=== PATIENT | female | born 1935 | race Asian ===

== ENCOUNTER 2018-10-08 11:13 | Emergency (ER) | payer MEDICARE, OTHER ==
[~2018-10-08] VITALS: Ht 157.5 cm; Wt 44.5 kg
[2018-10-08 11:18] VITALS: BP 132/83
== END 2018-10-08 13:05 | disposition home or self-care (01) ==
LOC: ED 11:13
DX: R22.2 Localized swelling, mass and lump, trunk (principal); Z98.890 Other specified postprocedural states; K59.00 Constipation, unspecified; H40.9 Unspecified glaucoma; Z88.5 Allergy status to narcotic agent; Z88.6 Allergy status to analgesic agent; Z88.8 Allergy status to other drugs, medicaments and biological substances

== ENCOUNTER 2019-12-02 10:04 | Inpatient (IN) | payer OTHER, MEDICARE ==
[~2019-12-02] VITALS: Ht 152.4 cm; Wt 42.6 kg
--- NOTE | 2019-12-02 10:31 | NUR ---
PATIENT WITH FAMILY MEMBER AT THIS TIME. FAMILY MEMBER STATES THAT PATIENT FELL DUE TO BEING DIZZY. PATIENT HAS CUT NOTED L ANTERIOR PART OF THE HEAD. PATIENT ALSO FELL ON HER SHOULDER AND HAS L SIDED SHOULDER SWELLING. PATIENT STABLE AT THIS TIME WITH NO S/S OF DISTRESS. PATIENT PLACED ON DYEHOUSE WORKER AT THIS TIME. PATIENT AND FAMILY MEMBER ORIENTED TO ROOM AND CALL LIGHT. WILL CONTINUE TO MONITOR.
[2019-12-02 11:04] LABS: BASOPHIL % 0.1 % (0-2); PLATELET COUNT 283 x10^3mcL (130-400); RED CELL DISTRIBUTION WIDTH 14.7 % (11.5-14.5)
--- NOTE | 2019-12-02 11:04 | NUR ---
PATIENT TO [facility] AT THIS TIME.
--- NOTE | 2019-12-02 11:07 | NUR ---
DR SANCHEZ AT BEDSIDE, PER EXCEPTIONAL CHILDREN'S TEACHER, SHE WILL COME BACK. WILL CONTINUE TO MONITOR.
[2019-12-02 11:08] LABS: CALCIUM 9.7 mg/dL (8.5-10.1); CARBON DIOXIDE 30.8 mmol/L (21-32); CHLORIDE SERUM 91 mmol/L (98-107); CREATININE SERUM 0.8 mg/dL (0.6-1.0); GLUCOSE SERUM 135 mg/dL (74-106); POTASSIUM SERUM 4.1 mmol/L (3.5-5.1); SODIUM SERUM 132 mmol/L (136-145)
[2019-12-02 11:13] LABS: ALBUMIN 4.1 g/dL (3.4-5.0); ALKALINE PHOSPHATASE 69 U/L (46-116); ALT/SGPT 21 U/L (14-59); AST/SGOT 25 U/L (15-37); BILIRUBIN TOTAL 0.43 mg/dL (0.20-1.00)
[2019-12-02 11:14] LABS: CHOLESTEROL 238 mg/dL (<200); HDL CHOLESTEROL 116 mg/dL (40-60); TOTAL PROTEIN, SERUM 8.6 g/dL (6.4-8.2)
--- NOTE | 2019-12-02 11:22 | NUR ---
PATIENT TO [facility] AT THIS TIME. PT STABLE WITH NO S/S OF DISTRESS.
--- NOTE | 2019-12-02 12:35 | NUR ---
PATIENT ASSISTED TO THE RESTROOM AT THIS TIME, NO PROBLEMS NOTED. NO DISTRESS NOTED. WILL CONTINUE TO MONITOR.
--- NOTE | 2019-12-02 14:53 | NUR ---
PATIENT PROVIDED WITH MEAL TRAY AT THIS TIME. NO TROUBLE SWALLOWING. WILL CONTINUE TO MONITOR.
[2019-12-02 15:40] LABS: UA SPECIFIC GRAVITY <=1.005 (1.005-1.035); microscopic required? YES; urine erythrocyte TRACE (NEGATIVE)
--- NOTE | 2019-12-02 15:58 | NUR ---
REPORT AT THIS TIME GIVEN TO JONATHAN MOMIN. ALL QUESTIONS ANSWERED AT THIS TIME.
--- NOTE | 2019-12-02 16:14 | NUR ---
RECEIVED PT FROM ED [facility]IA [facility], CAME IN DUE TO SYNCOPE AND FALL. AAOX4. DENIES DIZZINESS. C/O 6/10 HEADACHE, LEFT SHOULDER, BACK, AND LEG PAIN. ABLE TO FOLLOW COMMANDS. SPEECH IS CLEAR. NO FACIAL DROOP/ARM DRIFT NOTED. NO SOB, LUNG SOUNDS CTA, O2 DFY=379%, RA. DENIES CHEST PAIN/PRESSURE, SR W/ DEPRESSED T AND PAC'S. DENIES ABDOMINAL PAIN/NAUSEA/VOMITING. STATED THAT SHE IS CONSTIPATED, LAST BM TODAY. VOIDS. W/ SUTURES ON THE LEFT SIDE OF THE HEAD COVERED W/ GAUZE DRESSING, LEFT EYE AND LEFT SHOULDER ECCHYMOSIS, MARGOTH. SIDE RAILS UPX2. CALL LIGHT ON REACH. HOB ELEVATED AT 30 DEG. PRIMARY NURSE YAMEL AT BEDSIDE FOR CONTINUITY OF CARE
[2019-12-02] MEDS ORDERED: OMEPRAZOLE40 M1 PO (16:17)
[2019-12-02 16:38] VITALS: BP 156/68
[2019-12-02 16:41] VITALS: Ht 152.4 cm; Wt 42.6 kg
--- NOTE | 2019-12-02 18:34 | NUR ---
PATIENT IN BED AT THIS TIME. STATES MILD THOMAS, DENIES NEED FOR TYLENOL. [id number] AT [facility], DR FRANZ IN TO SPEAK WITH PATIENT AND D-I-L ABOUT PLAN OF CARE. BOTH PATIENT AND D-I-L AGREE AND VERBALIZE UNDERSTANDING. D-I-L AWARE TO BRING LIST OF HOME MEDICATIONS FOR NURSING STAFF TODAY OR TOMORROW. WILL ENDORSE TO ONCOMING NURSE, CALL LIGHT IN REACH, PATIENT NEAR NURSES STATION.
[2019-12-02 19:30] VITALS: BP 107/51
--- NOTE | 2019-12-02 19:30 | NUR ---
RECEIVED PT AWAKE ALERT AND VERBALL RESPONSIVE.S/P FALL AT HOME.SYNCOPAL EPISODE.DENIES DIZZINESS BUT WITH C/O HEADACHE 4/10 TO ACHING PAIN.+ PERRLA.NO VOMTING NOTED. ASKING FOR HER NEURONTIN AT THIS TIME.WILL MEDICATE ACCORDINGLY.LATEST BP 107/51 MMHG,HR 74.SKIN TEAR TO L EYEBROW WITH PURPLISH DISCOLORATION.ECCHYMOSIS TO L SHOULDER.ALSO C/O L SHOULDER PAIN WHEN TOUCHED OR MOVED.BED ALARM ON AT ALL TIMES.ENCOURAGED TO CALL NEEDED.MOVED FROM 218B TO 223A.ALL BELONGINGS SENT WITH PT.WILL CONTINUE TO MONITOR.
--- NOTE | 2019-12-02 22:28 | NUR ---
UA RESULT REPORTED TO DR. FRANZ WITH NNO.
--- NOTE | 2019-12-03 04:43 | NUR ---
PT SLEPT WELL.NO SYNCOPAL EPISODE NOTED.NO FALLS/INJURY.ASSISTED TO BR NEEDED.NO CHANGE IN LOC.+PERRLA.MEDICATED WITH TYLENOL 650 MG PO X1 FOR HEADACHE WITH GOOD RELIEF.ALL NEEDS MET.BED ALARM ON AT ALL TIMES.WILL CONTINUE TO MONITOR.
[2019-12-03 07:06] LABS: BASOPHIL % 0.6 % (0-2); PLATELET COUNT 235 x10^3mcL (130-400)
[2019-12-03 07:09] LABS: RED CELL DISTRIBUTION WIDTH 14.9 % (11.5-14.5)
--- NOTE | 2019-12-03 07:13 | NUR ---
RECEIVED REPORT FROM NORM CASTILLO. PATIENT RESTING COMFORTABLY IN BED WITH ALL NEEDS MET. PT ON ROOM AIR. NO C/O SOB AND NO DISTRESS NOTED. TELE # [address] PT DENIES CHEST PAIN. IV TO RAC IS PATENT AND INFUSING NS @ 70 ML/HR. NO REDNESS OR PAIN. ALL QUESTIONS AND CONCERNS ADDRESSED.
[2019-12-03 07:15] LABS: CALCIUM 8.3 mg/dL (8.5-10.1); CARBON DIOXIDE 28.9 mmol/L (21-32); CHLORIDE SERUM 94 mmol/L (98-107); CREATININE SERUM 0.7 mg/dL (0.6-1.0); GLUCOSE SERUM 82 mg/dL (74-106); PHOSPHOROUS 3.4 mg/dL (2.5-4.9); POTASSIUM SERUM 3.9 mmol/L (3.5-5.1); SODIUM SERUM 127 mmol/L (136-145)
--- NOTE | 2019-12-03 08:38 | NUR ---
PAGED DR WAITE TO NOTIFY OF NS 127L AND H/H . DOWN FROM
--- NOTE | 2019-12-03 09:36 | NUR ---
INSPECTOR METAL CAN AT BEDSIDE.
--- NOTE | 2019-12-03 12:39 | NUR ---
SPOKE WITH DR WAITE TO NOTIFY OF NEGATIVE [place], USV AND US CAROTID. DR WAITE STATED THAT HE WILL DISCHRGE TODAY WITH RECOMMENDATIONS FROM PHYSICAL THERAPY.
[2019-12-03 13:00] VITALS: BP 134/62
--- NOTE | 2019-12-03 13:04 | NUR ---
ECHO PENDING, PT W DOCTOR
[2019-12-03 15:38] LABS: CHOLESTEROL/HDL RATIO 2.1
--- NOTE | 2019-12-03 15:54 | NUR ---
CALLED FAMILY TO NOTIFY OF PATIENT DISCHARGE. SPOKE WITH DAUGHTER IN LAW BENITA PARDO WHO STATED SHE WILL BE HERE IN ONE HOUR TO WOOD CUT ENGRAVER PATIENT. PATIENT NOTIFIED.
[2019-12-03 16:03] VITALS: BP 134/62
--- NOTE | 2019-12-03 17:00 | NUR ---
PT STABLE FOR DISCHARGE PER MD. DISCHARGE INSTRUCTIONS AND SUMMARY DISCUSSED WITH PATIENT. PT VERBALIZED UNDERSTANDING AND AGREES TO FOLLOW UP APPOINTMENT WITH PRIMARY DOCTOR. IV REMOVED AND IV POLE CLEARED. TELE MONITOR REMOVED AND MONITOR NOTIFIED. ID BANDS CUT. PT TO BE ESCORTED TO LOBBY WHEN SHE IS DONE CHANGING.
--- NOTE | 2019-12-04 08:43 | NUR ---
ECHOCARDIOGRAM NOT DONE PT DISCHARED.
== END 2019-12-03 17:00 | disposition home health service (06) | DRG 204 ==
LOC: ED 10:04 → DU 14:31
PROVIDERS: Emergency Medicine; ADMIT Family Medicine
PROC: 0HQ1XZZ Repair Face Skin, External Approach (ICD-10-PCS; principal; 2019-12-02)
DX: I95.1 Orthostatic hypotension (principal); E87.8 Other disorders of electrolyte and fluid balance, not elsewhere classified; G62.9 Polyneuropathy, unspecified; E83.51 Hypocalcemia; E87.1 Hypo-osmolality and hyponatremia; N39.0 Urinary tract infection, site not specified; M06.9 Rheumatoid arthritis, unspecified; S01.112A Laceration without foreign body of left eyelid and periocular area, initial encounter; S40.012A Contusion of left shoulder, initial encounter; K29.70 Gastritis, unspecified, without bleeding; K80.20 Calculus of gallbladder without cholecystitis without obstruction; H40.9 Unspecified glaucoma; E78.5 Hyperlipidemia, unspecified; Z68.1 Body mass index [BMI] 19.9 or less, adult; Z96.653 Presence of artificial knee joint, bilateral; W18.39XA Other fall on same level, initial encounter; Y92.012 Bathroom of single-family (private) house as the place of occurrence of the external cause
CPT/HCPCS: 82962; 90715; 97116-GP; G0378; J2001; J3490; J7030; Q0092

== ENCOUNTER 2020-12-20 18:26 | Emergency (ER) | payer MEDICARE, OTHER ==
[~2020-12-20] VITALS: Ht 160 cm; Wt 40.8 kg
[~2020-12-20 18:26] MED LIST: OMEPRAZOLE40 M1 PO
[2020-12-20 18:35] VITALS: Ht 160 cm; Wt 40.8 kg
[2020-12-20 19:10] LABS: BASOPHIL % 0.8 % (0.2-1.3); PLATELET COUNT 300 x10^3mcL (179-408)
[2020-12-20 19:20] LABS: UA SPECIFIC GRAVITY <=1.005 (1.005-1.035); microscopic required? YES; urine erythrocyte 1+ (NEGATIVE)
[2020-12-20 19:24] LABS: CALCIUM 8.5 mg/dL (8.5-10.1); CARBON DIOXIDE 30.7 mmol/L (21-32); CHLORIDE SERUM 92 mmol/L (98-107); CREATININE SERUM 0.6 mg/dL (0.6-1.0); GLUCOSE SERUM 95 mg/dL (74-106); SODIUM SERUM 127 mmol/L (136-145)
[2020-12-20 19:28] LABS: ALBUMIN 3.5 g/dL (3.4-5.0); ALKALINE PHOSPHATASE 179 U/L (46-116); ALT/SGPT 23 U/L (14-59); AST/SGOT 23 U/L (15-37); BILIRUBIN TOTAL 0.4 mg/dL (0.20-1.00); LACTIC DEHYDROGENASE (LDH) 196 U/L (100-190); TOTAL PROTEIN, SERUM 7.3 g/dL (6.4-8.2)
[2020-12-20 20:28] LABS: ovalocyte/elliptocyte 1+; rbc morphology (normal/abnorm) ABNORMAL (NORMAL)
[2020-12-20 23:18] VITALS: BP 164/95
== END 2020-12-20 23:18 | disposition home or self-care (01) ==
LOC: ED 18:26
PROVIDERS: Emergency Medicine
DX: G89.29 Other chronic pain (principal); M54.5 Low back pain; Z20.828 Contact with and (suspected) exposure to other viral communicable diseases; Z88.5 Allergy status to narcotic agent; Z88.8 Allergy status to other drugs, medicaments and biological substances
CPT/HCPCS: 83880; 85378; 87804; U0003

== ENCOUNTER 2021-01-15 09:14 | Emergency (ER) | payer MEDICARE, OTHER ==
[~2021-01-15] VITALS: Ht 160 cm; Wt 39.0 kg
[2021-01-15 09:21] VITALS: Ht 160 cm; Wt 39.0 kg
[2021-01-15 11:53] VITALS: BP 158/67
== END 2021-01-15 11:53 | disposition home or self-care (01) ==
LOC: ED 09:14
DX: S83.91XA Sprain of unspecified site of right knee, initial encounter (principal); S50.811A Abrasion of right forearm, initial encounter; G89.29 Other chronic pain; M54.9 Dorsalgia, unspecified; Z88.8 Allergy status to other drugs, medicaments and biological substances; Z88.5 Allergy status to narcotic agent; W18.30XA Fall on same level, unspecified, initial encounter; Y93.89 Activity, other specified; Y92.89 Other specified places as the place of occurrence of the external cause; Y99.8 Other external cause status